=== PATIENT | female | born 1995 | race Caucasian/White ===

== ENCOUNTER 2017-11-07 03:06 | Emergency (ER) | payer OTHER ==
[~2017-11-07] VITALS: Ht 157.5 cm; Wt 54.0 kg
[2017-11-07] MEDS ORDERED: MAALOX/HYOSCYAMINE/LIDOCAINE 45 ML BTL ONE (04:17)
[2017-11-07] MEDS ORDERED: MAALOX/HYOSCYAMINE/LIDOCAINE 45 ML BTL PO ONE (04:30)
[2017-11-07 05:32] VITALS: BP 124/68
== END 2017-11-07 05:34 | disposition home or self-care (01) ==
LOC: ED 04:14
DX: R11.10 Vomiting, unspecified (principal); Z88.0 Allergy status to penicillin
CPT/HCPCS: 99283

== ENCOUNTER 2021-03-26 07:42 | Emergency (ER) | payer OTHER ==
[~2021-03-26] VITALS: Ht 157.5 cm; Wt 47.7 kg
[2021-03-26 08:30] LABS: BASOPHILS % (AUTO) 0 % (0-1); EOSINOPHILS % (AUTO) 0 % (1-7); LYMPHOCYTES % (AUTO) 15 % (22-44); MD NO; MEAN CORPUSCULAR HGB CONC 34.6 g/dL (32.4-35.8); MEAN PLATELET VOLUME 6.8 fL (7.4-10.4); MONOCYTES % (AUTO) 4 % (2-9); NEUTROPHILS % (AUTO) 81 % (42-75); PLATELET COUNT 253 x10^3/uL (130-400); RED CELL DISTRIBUTION WIDTH 12.2 % (9.6-15.2)
[2021-03-26] MEDS ORDERED: hydrOXYzine 25 MG/ML IM ONE (08:30)
--- NOTE | 2021-03-26 08:30 | NUR ---
Pt moved in to a new apartment 3 weeks ago. Finished a course of abx for a UTI on Wednesday. Noted a rash on her back, mostly along her spine on Wednesday. Rash has spread to her whole body. Pt complains of itchiness, and full body joint pains associated with this. Pt was seen at for this states the steroid shot she recieved helped a little initially but has not resolved her problems. Denies any resp involvement. Connected to BP and O2 monitors.
--- NOTE | 2021-03-26 08:43 | NUR ---
Pt ambualtory to bathroom for UA, steady gait.
--- NOTE | 2021-03-26 08:52 | NUR ---
REPORT RECEIVED FROM MISSY BURNETT.
[2021-03-26 08:53] LABS: ALANINE AMINOTRANSFERASE 21 U/L (12-78); ALBUMIN 3.7 g/dL (3.4-5.0); ANION GAP 9 mmol/L (5-15); CALCIUM 8.9 mg/dL (8.5-10.1); CHLORIDE 112 mmol/L (98-107); CREATININE 0.71 mg/dL (0.55-1.02)
[2021-03-26 08:55] LABS: ALKALINE PHOSPHATASE 47 U/L (45-117); BILIRUBIN,TOTAL 0.3 mg/dL (0.2-1.0); TOTAL PROTEIN 7.1 g/dL (6.4-8.2)
[2021-03-26 09:10] LABS: MICROSCOPIC INDICATED
[2021-03-26 09:35] VITALS: BP 110/74
--- NOTE | 2021-03-26 10:00 | NUR ---
DISCHARGE INSTRUCTIONS REVIEWED WITH PT. ALL QUESTIONS ANSWERED AT THIS TIME.
== END 2021-03-26 10:02 | disposition home or self-care (01) ==
LOC: ED 08:35
DX: L50.9 Urticaria, unspecified (principal); M79.89 Other specified soft tissue disorders
CPT/HCPCS: 36415; 80053; 81001; 85025; 96372; 99283; J3410